=== PATIENT | female | born 1955 | race Caucasian/White ===

== ENCOUNTER 2019-03-19 17:03 | Emergency (ER) | payer MEDICARE, MEDICAID ==
--- NOTE | 2019-03-19 17:16 | UC ---
Skin Complaint HPI - HPI Summary HPI Summary: 63 y/o female presents to the urgent care c/o tick bite w/ tick still presents in her left upper back. Tick has been there for 1 week. Pt was outside in the garden about 1 wek ago. She noticed at night time something bit her. The next day she thought it was a pimple and she didn't pay to much attention. She has Hx of neuropathy and she felt alike a tingling sensation at times. Pt is very anxious and requests full treatment w/ antibiotics. Pt deneis fever, MOYA, joint pain, dizziness, abdominal pain, N/V/D. She has had tick bite in the pst w/o any prophylactic treatment. - History of Current Complaint Time Seen by Provider: 03/19/19 17:14 Stated Complaint: TICK BITE Hx Obtained From: Patient Onset/Duration: Gradual Onset, Lasting Weeks - 1 week, Still Present Skin Exposure Onset/Duration: Weeks Ago - 1 week Timing: Constant Onset Severity: Moderate Current Severity: Severe Pain Intensity: 4 Pain Scale Used: 0-10 Numeric Location: Discrete - left side of upper back w/ a engorged tick for the past week. Character: Swelling, Redness, Painful Aggravating Factor(s): Touch Alleviating Factor(s): Nothing Associated Signs & Symptoms: Positive: Rash - tick bite on the left upper back for the past week. She though it was a pimple. Negative: Fever, Chills Related History: Possible Reaction to: Insect - tick bite - Allergy/Home Medications Allergies/Adverse Reactions: Allergies Allergy/AdvReac Type Severity Reaction Status Date / Time clarithromycin [From Biaxin] Allergy Unknown Verified 03/19/19 17:31 Reaction Details codeine Allergy Unknown Verified 03/19/19 17:31 Reaction Details latex Allergy Unknown Verified 03/19/19 17:31 Reaction Details melatonin Allergy Unknown Verified 03/19/19 17:31 Reaction Details morphine Allergy Unknown Verified 03/19/19 17:31 Reaction Details Penicillins Allergy Unknown Verified 03/19/19 17:31 Reaction Details povidone-iodine Allergy Unknown Verified 03/19/19 17:31 [From Betadine] Reaction Details pregabalin [From Lyrica] Allergy Unknown Verified 03/19/19 17:31 Reaction Details ramelteon [From Rozerem] Allergy Unknown Verified 03/19/19 17:31 Reaction Details soap [From Betadine] Allergy Unknown Verified 03/19/19 17:31 Reaction Details Home Medications: Home Medications Cyclosporine 0.05% OPHTH (NF) [Restasis 0.05% OPHTH] 1 drop BOTH EYES BID [History Confirmed 03/19/19] Gabapentin CAP(*) [Neurontin 100 mg CAP(*)] 100 mg PO BID 03/19/19 [History Confirmed 03/19/19] Lisinopril TAB* [Prinivil TAB 5 MG*] 5 mg PO DAILY 03/19/19 [History Confirmed 03/19/19] PARoxetine HCL TAB* [Paxil TAB*] 40 mg PO DAILY 03/19/19 [History Confirmed 12/06] hydrOXYzine HCL TAB* [Atarax 25 MG TAB*] 25 mg PO BID 03/19/19 [History Confirmed 03/19/19] PMH/Surg Hx/FS Hx/Imm Hx Previously Healthy: Yes Cardiovascular History: Hypertension Other Neurological History: herniated disc and neuropathy - Family History Known Family History: Positive: Hypertension, Diabetes - Social History Occupation: Employed Part-time Review of Systems All Other Systems Reviewed And Are Negative: Yes Constitutional: Positive: Negative Skin: Positive: Other - tick bite w/ tick still presents for 1 week ENT: Positive: Negative Respiratory: Positive: Negative Cardiovascular: Positive: Negative Gastrointestinal: Positive: Negative Genitourinary: Positive: Negative Motor: Positive: Negative Neurovascular: Positive: Negative Musculoskeletal: Positive: Negative Neurological: Positive: Negative Psychological: Positive: Negative Is Patient Immunocompromised?: No Physical Exam - Summary Physical Exam Summary: Vital Signs Reviewed: Yes General: well developed, well nourished female sitting in the examining table w/ o any apparent distress. Eyes: Positive: Conjunctiva Clear - PERRLA, EOMI ENT: Positive: Normal ENT inspection, Hearing grossly normal, Pharynx normal, TMs normal Neck: Positive: Supple, Nontender, No Lymphadenopathy Respiratory: Positive: Chest nontender, Lungs clear, Normal breath sounds Cardiovascular: Positive: RRR, No Murmur, Pulses Normal Abdomen Description: Positive: Nontender, No Organomegaly, Soft. Negative: CVA Tenderness (R), CVA Tenderness (L) Bowel Sounds: Positive: Present Musculoskeletal: Positive: Strength Intact, ROM Intact, No Edema Neurological Exam: Normal Psychological Exam: Normal Skin: Positive: rashes -left side of upper back w/ tick bite with surrounding erythema, tender to palpation. engorged big tick still present, no swelling or drainage observed. Triage Information Reviewed: Yes Course/Dx - Course Course Of Treatment: 63 y/o female presents to the urgent care c/o tick bite w/ tick still presents in her left upper back. Tick has been there for 1 week. Pt was outside in the garden about 1 wek ago. She noticed at night time something bit her. The next day she thought it was a pimple and she didn't pay to much attention. She has Hx of neuropathy and she felt alike a tingling sensation at times. Pt is very anxious and requests full treatment w/ antibiotics. Pt deneis fever, MOYA, joint pain, dizziness, abdominal pain, N/V/D. She has had tick bite in the pst w/o any prophylactic treatment. Hx obtained. Pt w/ left side of upper back w/ tick bite with surrounding erythema, tender to palpation. engorged big tick still present, no swelling or drainage observed on examination. Tick was removed from left upper back using twister technique. Tick big and engorged and still alive. After tick removal and the skin cleansing and Bacitracin oint applied . [facility] a whole week. Pt advised to observe the area for the development or Erythema Migrans for upto 30 days following exposure. Advised f/u w/ her PCP in 2-3 week for Lyme serology. However strongly advised to f/u with Dr Mary if serology returns positive for further management. Rx sent to pharmacy and advised to take full course of ABX despite Serology result. Pt's BP is elevated today advised to decrease salt in diet, monitor BP and f/u with PCP for further management. Pt understood and agreed with plan of care. - Differential Diagnoses - Skin Complaint Differential Diagnoses: Abscess, Cellulitis, Contact Dermatitis, Local Allergic Reaction, MRSA, Tick Born Illness, Urticaria - Diagnoses Provider Diagnosis: Tick bite of back, Uncontrolled hypertension Discharge - Sign-Out/Discharge Documenting (check all that apply): Patient Departure - D/C home All imaging exams completed and their final reports reviewed: No Studies - Discharge Plan Condition: Stable Disposition: HOME Prescriptions: Bacitracin OINTMENT* 1 applic TOPICAL BID #1 tube DOXYcycline CAP(*) [DOXYcycline 100MG CAP(*)] 100 mg PO BID #28 cap Patient Education Materials: Tick Bite (ED) Referrals: Tyra COLEMAN,Randall Guillen [Medical Doctor] - If Needed Stefany Jacobs MD [Primary Care Provider] - 2 Weeks Additional Instructions: 1- Please observe the area for the development or Erythema Migrans for upto 30 days following exposure. Components of the tick saliva can cause transient erythema that should not be confused with Erythema Migrans. If you develop the bull's eye rash, fever, joint pains please return to the urgent care or f/u with 2- Since tick is so engorged and has been there for 1 week you, please take full course of Doxycycline PO to prevent lyme Disease. Lyme serology can be drawn in 3 weeks with your PCP to r/o Lyme disease since there is probability of negative results at early exposure. If it returns positive please f/u w/ Dr Mary who specializes in Lyme disease. 3- Your BP is elevated today. please decrease salt in your diet, monitor BP and if it continues to be elevated please f/u with your PCP for further management. - Billing Disposition and Condition Condition: STABLE Disposition: Home - Attestation Statements Provider Attestation: I was available for consult. This patient was seen by the CHRISTA. Plan of care discussed with me . The patient was not seen by or examined by me -Bon Vazquez MD
[2019-03-19 17:20] VITALS: BP 153/90
== END 2019-03-19 17:46 | disposition home or self-care (01) ==
LOC: UCCORT 17:03
DX: S20.462A Insect bite (nonvenomous) of left back wall of thorax, initial encounter (principal); W57.XXXA Bitten or stung by nonvenomous insect and other nonvenomous arthropods, initial encounter; Y93.H2 Activity, gardening and landscaping; Y92.017 Garden or yard in single-family (private) house as the place of occurrence of the external cause; G62.9 Polyneuropathy, unspecified; Z88.1 Allergy status to other antibiotic agents; Z91.040 Latex allergy status; Z88.5 Allergy status to narcotic agent; Z88.0 Allergy status to penicillin; Z91.048 Other nonmedicinal substance allergy status
CPT/HCPCS: 99212; G0463

== ENCOUNTER 2019-04-19 15:46 | Emergency (ER) | payer MEDICARE, MEDICAID ==
--- OUTSIDE RECORDS SUMMARY | 2019-04-19 16:01 | XMS REPORT | Continuity of Care Document ---
:1955 External Reference #:[id number] Author Name MichCedric madrigalley Care Team Providers Name Role Phone Stefany Jacobs MD Primary Care Physician Unavailable Payers Date Identification Numbers Payment Provider Subscriber Effective: 1995 Policy Number: [id number] Medicare Nadine Gardner PayID: [id number] [address] [place] [address] Effective: 2017 Policy Number: [id number] Medicaid Nadine Gardner Group Name: 1 1 [address] PayID: [id number] [place] [address] Onset: 1992 Policy Number: [id number] [facility] Nadine Gardner Group Number: [id number] [address] [address] PayID: [id number] [address] Advance Directives Type Date Description Status Comment MOLST 05/11/2018 MOLST Current and Verified Other Directive 03/21/2018 Health Care Proxy Current and Verified Problems Active Problems Provider Date Myalgia & Myositis Unspecified Isaac Redman M.D. Onset: 08/24/2011 Disorder of lumbar disc Jazzy Child M.D. Onset: 08/27/2011 Neck sprain Jazzy Child M.D. Onset: 08/27/2011 Basal cell carcinoma of scalp Onset: Note: Dr. Prather Impaired fasting glycaemia Stefany Jacobs M.D. Onset: 01/19/2017 Cervical spondylosis with radiculopathy Onset: Essential hypertension Stefany Jacobs M.D. 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 Onset: 05/26/2018 Subjective tinnitus Stefany Jacobs M.D. Onset: 10/05/2018 Inactive Problems Lumbar sprain Jazzy Child M.D. Onset: 08/27/2011 Inactive: 03/10/2018 Family History Date Family Member(s) Observation Comments General Heart Disease General Hypertension General Stroke Social History Type Date Description Comments Sex Unknown Tobacco Use Start: Unknown End: Former Cigarette Smoker quit 30 yrs ago off Unknown and on X 6 yrs Smoking Status Reviewed: 05/11/18 Former Cigarette Smoker quit 30 yrs ago off and on X 6 yrs ETOH Use Denies alcohol use ETOH Use sig other lives with Tobacco Use Start: Unknown End: Patient is a former smoker Unknown Allergies, Adverse Reactions, Alerts Active Allergies Reaction Severity Comments Date Penicillins 03/10/2011 Sodium Pentothal 03/10/2011 Cocaine 03/10/2011 Lyrica 03/10/2011 Rozerem 03/10/2011 Latex 03/10/2011 bandaids 03/10/2011 Betadine 03/10/2011 Sulfa 03/10/2011 Biaxin 03/10/2011 Morphine 03/02/2013 Valium 03/02/2013 Demerol 03/02/2013 Melatonin 10/03/2015 Medications Active Medications SIG Qnty Indications Ordering Date Provider Prinivil once a day 90tabs Stefany Jacobs, 04/05/2019 10mg M.D. Tablets Atarax Twice Daily Unknown 03/19/2019 25mg Tablets Bacitracin Zinc Twice Daily 1units Unknown 03/19/2019 500Unit/GM Ointment Ibuprofen 200 2 tab every 8 hrs as 90tabs Stefany Jacobs, 11/11/2018 200mg needed for pain M.D. Tablets Shingrix intramuscular x 1 1units Stefany Jacobs, 05/11/2018 50mcg then repeat in 4 M.D. Suspension Rec months Gabapentin 1 cap every 12 hours 60caps M51.16 Stefany Jacobs, 10/07/2017 100mg M.D. Capsules Hydroxyzine HCL take 1 tab by mouth Unknown 2x daily for anxiety 50mg Tablets as needed Paroxetine HCL 1 by mouth every day Unknown 40mg Tablets Vitamin E 1 po qd Unknown 400mg Capsules Fish Oil 1 daily Unknown Vitamin D3 High 3 po qd Unknown Potency 1000 Capsules Vitamin C 1 po qd Unknown 500mg Tablet Restasis one gtts ou bid 1units Unknown 0.05% Emulsion Vitamin B-12 1 po qd 90tabs Unknown 1000mcg Tablets Sub History Medications Doxycycline Hyclate Twice Daily 28caps Unknown 03/19/2019 - 100mg 04/05/2019 Capsules Prinivil once a day 90tabs Stefany 04/19/2018 - 5mg Tablets Hernesto Jacobs 04/05/2019 Ciprofloxacin HCL 1 by mouth twice a 6tabs N39.0 Jimmy 12/01/2016 - 500mg day Hernesto Gutierrez 02/10/2017 Tablets Betamethasone apply to rash 45m Jazzy 01/03/2015 - Dipropionate under breasts 2x Hernesto Child 10/07/2016 0.05% per day Ointment Clotrimazole apply twice a day 65gm Jazzy 01/03/2015 - 1% Cream for 2-3 days as Hernesto Child 10/07/2016 needed Proair HFA 2 puffs by mouth 1units 493.10 Jazzy 01/03/2015 - 108(90Base) every 4 hours as Hernesto Child 10/07/2016 mcg/Act Aerosol needed Nystop apply twice a day 60units 112.9 Jazzy 01/03/2015 - 677293Kfuj/GM Hernesto Child 10/07/2016 Powder Clotrimazole/Betametha apply twice daily 45units 112.9 Jazzy 01/03/2015 - sone Dipropionate as needed Hernesto Child 01/04/2015 1-0.05% unbreasts Cream Triamcinolone apply thin film 45units 691.8 Jazzy 01/03/2015 - Acetonide twice daily Hernesto Child 10/07/2016 0.1% Cream Azithromycin 2 tab po day 1 6tabs 476.0 Jazzy 11/03/2012 - 250mg then 1 tab po day Hernesto Child 03/02/2013 Tablets 2-5 Shingles Vaccine SQ 1 dose 1units [place] 09/12/2012 - [place], 03/02/2013 Hernesto Cefuroxime Axetil 1 po bid for 10 20tabs 461.9 Bro Guillen 08/24/2011 - 500mg days [place], 01/27/2012 Tablets ALAN Eric Omnaris 1 sprays each chio 1mon 461.9 Bro Guillen 08/24/2011 - 50mcg/Act bid [place], 01/27/2012 Suspension Hernesto,FACDuncan Clonazepam 1 and 1/2 tab by 45tabs Stefany 03/10/2011 - 0.5mg Tablets mouth at bedtime Hernesto Jacobs 02/10/2017 Cyclobenzaprine HCL take 1 tablet by 30tabs Stefany 03/10/2011 - 5mg mouth as needed Hernesto Jacobs 05/10/2018 Tablets Ibuprofen take 1 tablet by 270tabs Stefany - 800mg Tablets mouth three times Hernesto Jacobs 10/07/2016 a day if needed Alendronate Sodium take 1 tablet by 4tabs Jazzy - 70mg mouth every week Hernesto Child 02/25/2012 Tablets Premarin 1 application 42.500gm Unknown - 0.625mg/GM Cream daily 01/27/2012 Detrol LA 1 po qd 30caps Unknown - 4mg Caps ER 08/27/2011 24HR Paroxetine HCL 1 po qd 30tabs Jazzy - 40mg Hernesto Child 02/02/2018 Tablets Hydroxyzine HCL 1 po bid 60tabs Jazzy - 50mg Hernesto Child 02/02/2018 Tablets Fiberchoice 2 po qd Unknown - 2gm [place]wtabs 09/07/2013 Metamucil 2 tbsp qid po QS Unknown - 48.57% Powder 09/07/2013 Stool Softener 1 po bid Unknown - 100mg 03/02/2013 Capsules Advil 2 tab every 8 100caps Stefany - 200mg Capsules hours as needed Hernesto Jacobs 11/11/2018 Flexeril 1 tablet three 30tabs Unknown - 5mg Tablets times a day as 03/10/2011 needed Medications Administered in Office Medication SIG Qnty Indications Ordering Provider Date Shingrix no bill inj-pt brought in Unknown 08/24/2018 Injection Immunizations CPT Code Status Date Vaccine Lot # [id number] Given 08/12/2018 Influenza Virus Vaccine, Quadrivalent, Split, Preservative Free 44142 Given 06/14/2018 Zoster (Shingles) Vaccine (HZV), Recombinant, Subunit, Adjuvanted 78075 Given 08/05/2017 Influenza Virus Vaccine, Quadrivalent, Split, Preservative Free [id number] Given 07/30/2016 Influ Virus Vaccine, Quadrivalent, Split Virus, [place] [address] Given 07/30/2015 Pneumococcal Conjugate Vaccine 13 Valent For Intramuscular Use 59110 Given 07/16/2015 Influenza Virus Vaccine, Quadrivalent, Split, Preservative Free [id number] Given 07/27/2014 Fluvirin Im 3Yrs And Older Q2039 Given 07/14/2013 Flu Vaccine NOS Q2037 Given 09/14/2012 Fluvirin Im 3Yrs And Older 30707 Given 07/27/2011 Influenza Virus 3Yrs & Over 20131 Given 06/11/2010 Tdap - Tetanus/Diptheria/Acellular Pertussis Vital Signs Date Vital Result Comment 04/05/2019 10:39am Height 58 inches 4'10" Weight 134.00 lb Heart Rate 67 /min BP Systolic 146 mmHg BP Diastolic 81 mmHg O2 % BldC Oximetry 98 % BMI (Body Mass Index) 28.0 kg/m2 10/05/2018 10:53am Height 58 inches 4'10" Weight 133.00 lb Heart Rate 76 /min BP Systolic Sitting 140 mmHg BP Diastolic Sitting 98 mmHg O2 % BldC Oximetry 95 % BMI (Body Mass Index) 27.8 kg/m2 05/11/2018 1:16pm Height 58 inches 4'10" Weight 130.00 lb Heart Rate 75 /min BP Systolic Sitting 130 mmHg BP Diastolic Sitting 90 mmHg O2 % BldC Oximetry 97 % BMI (Body Mass Index) 27.2 kg/m2 04/19/2018 12:10pm Heart Rate 73 /min BP Systolic Sitting 158 mmHg L arm 153/90 BP Diastolic Sitting 91 mmHg L arm 153/90 04/07/2018 10:32am Height 58.5 inches 4'10.50" Weight 131.50 lb Heart Rate 65 /min BP Systolic Sitting 136 mmHg BP Diastolic Sitting 92 mmHg Pain Level 7 O2 % BldC Oximetry 95 % BMI (Body Mass Index) 27.0 kg/m2 03/10/2018 12:08pm Height 58.5 inches 4'10.50" Weight 134.00 lb Heart Rate 68 /min BP Systolic Sitting 130 mmHg BP Diastolic Sitting 88 mmHg Pain Level 8 O2 % BldC Oximetry 99 % BMI (Body Mass Index) 27.5 kg/m2 02/02/2018 9:39am Weight 135.00 lb Heart Rate 87 /min BP Systolic Sitting 120 mmHg BP Diastolic Sitting 80 mmHg Body Temperature 98.0 F O2 % BldC Oximetry 97 % 10/07/2017 10:27am Weight 138.00 lb Heart Rate 70 /min BP Systolic 135 mmHg BP Diastolic 90 mmHg Body Temperature 97.3 F O2 % BldC Oximetry 98 % 04/07/2017 10:32am Weight 132.50 lb Heart Rate 70 /min BP Systolic 128 mmHg BP Diastolic 80 mmHg Body Temperature 97.2 F O2 % BldC Oximetry 97 % 02/10/2017 10:56am Weight 130.00 lb Heart Rate 68 /min BP Systolic Sitting 124 mmHg BP Diastolic Sitting 72 mmHg Respiratory Rate 15 /min Body Temperature 98.0 F O2 % BldC Oximetry 98 % 12/01/2016 2:18pm Weight 133.00 lb Heart Rate 68 /min BP Systolic 130 mmHg BP Diastolic 86 mmHg Body Temperature 98.2 F O2 % BldC Oximetry 98 % 10/07/2016 10:47am Weight 137.00 lb Heart Rate 76 /min BP Systolic Sitting 148 mmHg BP Diastolic Sitting 86 mmHg Body Temperature 97.4 F 04/03/2016 10:32am Weight 136.00 lb Heart Rate 71 /min BP Systolic Sitting 124 mmHg BP Diastolic Sitting 80 mmHg Body Temperature 97.1 F O2 % BldC Oximetry 98 % 10/03/2015 10:49am Weight 138.00 lb Heart Rate 63 /min BP Systolic Sitting 133 mmHg BP Diastolic Sitting 86 mmHg Body Temperature 97.6 F 04/04/2015 10:23am Height 58.5 inches 4'10.50" Weight 133.00 lb Heart Rate 78 /min BP Systolic Sitting 126 mmHg BP Diastolic Sitting 78 mmHg Body Temperature 98.5 F O2 % BldC Oximetry 98 % BMI (Body Mass Index) 27.3 kg/m2 02/07/2015 10:37am Height 58.5 inches 4'10.50" Weight 138.25 lb Heart Rate 67 /min BP Systolic Sitting 114 mmHg BP Diastolic Sitting 68 mmHg Body Temperature 96.8 F O2 % BldC Oximetry 96 % BMI (Body Mass Index) 28.4 kg/m2 01/03/2015 10:35am Height 58.5 inches 4'10.50" Weight 136.00 lb Heart Rate 75 /min BP Systolic Sitting 118 mmHg BP Diastolic Sitting 84 mmHg Body Temperature 96.8 F O2 % BldC Oximetry 98 % BMI (Body Mass Index) 27.9 kg/m2 09/18/2014 10:06am Weight 138.00 lb Heart Rate 66 /min BP Systolic Sitting 120 mmHg BP Diastolic Sitting 72 mmHg 03/08/2014 10:41am Weight 132.00 lb Heart Rate 64 /min BP Systolic Sitting 118 mmHg BP Diastolic Sitting 70 mmHg 09/07/2013 11:06am Weight 134.00 lb Heart Rate 66 /min BP Systolic Sitting 147 mmHg BP Diastolic Sitting 91 mmHg 03/02/2013 10:40am Weight 130.00 lb Heart Rate 69 /min BP Systolic Sitting 118 mmHg BP Diastolic Sitting 79 mmHg 11/03/2012 1:24pm Height 58.50 inches 4'10.50" Weight 130.00 lb Heart Rate 63 /min BP Systolic Sitting 136 mmHg BP Diastolic Sitting 82 mmHg Body Temperature 98.8 F BMI (Body Mass Index) 26.7 kg/m2 09/01/2012 10:42am Height 58.50 inches 4'10.50" Weight 132.00 lb Heart Rate 78 /min BP Systolic Sitting 120 mmHg BP Diastolic Sitting 80 mmHg BMI (Body Mass Index) 27.1 kg/m2 02/25/2012 10:45am Height 58.50 inches 4'10.50" Weight 125.75 lb Heart Rate 72 /min BP Systolic Sitting 132 mmHg l BP Diastolic Sitting 84 mmHg l BMI (Body Mass Index) 25.8 kg/m2 02/05/2012 9:35am Height 58.50 inches 4'10.50" Weight 130.00 lb Heart Rate 63 /min BP Systolic Sitting 120 mmHg BP Diastolic Sitting 78 mmHg BMI (Body Mass Index) 26.7 kg/m2 01/27/2012 10:44am Height 58.50 inches 4'10.50" Weight 130.00 lb Heart Rate 74 /min BP Systolic Sitting 122 mmHg L BP Diastolic Sitting 80 mmHg L BMI (Body Mass Index) 26.7 kg/m2 08/27/2011 11:03am Weight 128.00 lb Heart Rate 70 /min BP Systolic Sitting 120 mmHg BP Diastolic Sitting 78 mmHg 08/24/2011 9:57am Weight 129.00 lb Heart Rate 72 /min BP Systolic Sitting 118 mmHg BP Diastolic Sitting 82 mmHg Body Temperature 98.0 F lt ear 05/21/2011 12:55pm Heart Rate 68 /min BP Systolic Sitting 120 mmHg BP Diastolic Sitting 80 mmHg 03/10/2011 9:51am Height 58 inches 4'10" Weight 124.00 lb Heart Rate 80 /min BP Systolic Sitting 124 mmHg BP Diastolic Sitting 90 mmHg BMI (Body Mass Index) 25.9 kg/m2 Results Test Date Facility Test Result H/L Range Note Laboratory test 06/03/2018 [facility] Hemosure negative finding Non-Medicare Basic Metabolic 05/03/2018 [facility] Sodium 140 mmol/L N 135- [address] [place] [address] [phone] Potassium 4.1 mmol/L N 3.5-5.0 Chloride 103 mmol/L N 101-111 Co2 Carbon Dioxide 27 mmol/L N 22-32 Anion Gap 10 mmol/L N 2-11 Glucose 110 mg/dL High 70-100 Blood Urea Nitrogen 17 mg/dL N 6-24 Creatinine 0.81 mg/dL N 0.51-0.95 BUN/Creatinine Ratio 21.0 High 8-20 Calcium 9.5 mg/dL N 8.6-10.3 Egfr Non- 71.6 >60 Egfr 86.7 >60 1 Laboratory test 02/10/2017 [facility] TSH (Thyroid 2.09 mcIU/mL N 0.34-5.[address] Stim [place]) [place] [address] [phone] Vitamin B12 626 pg/mL N 180-914 2 Lyme Disease Serology Negative N Negative 3 HIV 1/2 AB 02/10/2017 [facility] HIV 1 2 Nonreactive N Nonreactive [address] [place] [address] [phone] Ua Routine 12/01/2016 [facility] Ua Specific 5 [place] Ua PH 1.000 Ua Color light yellow Ua Appera clear Ua WBC neg Ua Protein neg Ua Glucose norm Ua Ketones neg Ua Bilirubin neg Ua Urobilinogen norm Ua Nitrite neg Ua Occult Blood neg Urine Culture And 12/01/2016 [facility] Urine Culture SEE RESULT [address] [place] [address] [phone] Drug Abuse 20 Urine 10/07/2016 [facility] Urine Negative N [address] Amphetamine ng/[place] [address] [phone] Urine Barbiturates Negative ng/mL N 7 Urine Benzodiazepines Negative ng/mL N 8 Urine Cocaine Negative ng/mL N 9 Urine Phencyclidine Negative ng/mL N Cutoff: 25 Urine Tetrahydrocannabinol Negative ng/mL N Cutoff: 50 10 Creatinine 75.1 mg/dL N Specific [place] 1.011 N pH 7.5 N Oxidants Negative N 11 Adulterants Comment Normal N Codeine, Ur Not Detected ng/mL N Cutoff: 25 12 Jrwndue-3-zguy-glucuronide, Ur Not Detected ng/mL N 13 Morphine, Ur Not Detected ng/mL N Cutoff: 25 14 Waddcpfx-0-eitl-glucuronide, U Not Detected ng/mL N 15 6-monoacetylmorphine, Ur Not Detected ng/mL N Cutoff: 25 16 Hydrocodone, Ur Not Detected ng/mL N Cutoff: 25 17 Norhydrocodone, Ur Not Detected ng/mL N Cutoff: 25 18 Dihydrocodeine, Ur Not Detected ng/mL N Cutoff: 25 19 Hydromorphone, Ur Not Detected ng/mL N Cutoff: 25 20 Zglfdylqqcbds6jgdxzrmciaryind Not Detected ng/mL N 21 Oxycodone, Ur Not Detected ng/mL N Cutoff: 25 22 Noroxycodone, Ur Not Detected ng/mL N Cutoff: 25 23 Oxymorphone, Ur Not Detected ng/mL N Cutoff: 25 24 Eqhazrjvsqu-7-hrcb-glucuronide Not Detected ng/mL N 25 Noroxymorphone, Ur Not Detected ng/mL N Cutoff: 25 26 Fentanyl, Ur Not Detected ng/mL N Cutoff: 2 27 Norfentanyl, Ur Not Detected ng/mL N Cutoff: 2 28 Meperidine, Ur Not Detected ng/mL N Cutoff: 25 29 Normeperidine, Ur Not Detected ng/mL N Cutoff: 25 30 Naloxone, Ur Not Detected ng/mL N Cutoff: 25 31 Zxfvypzd-4-ecrm-glucuronide, U Not Detected ng/mL N 32 Methadone, Ur Not Detected ng/mL N Cutoff: 25 33 Eddp, Ur Not Detected ng/mL N Cutoff: 25 34 Propoxyphene, Ur Not Detected ng/mL N Cutoff: 25 35 Norpropoxyphene, Ur Not Detected ng/mL N Cutoff: 25 36 Tramadol, Ur Not Detected ng/mL N Cutoff: 25 37 O-desmethyltramadol, Ur Not Detected ng/mL N Cutoff: 25 38 Tapentadol, Ur Not Detected ng/mL N Cutoff: 25 39 N-desmethyltapentadol, Ur Not Detected ng/mL N Cutoff: 50 40 Hmjlmofrfs-hfif-ddmkypcavwm, U Not Detected ng/mL N 41 Buprenorphine, Ur Not Detected ng/mL N Cutoff: 5 42 Norbuprenorphine, Ur Not Detected ng/mL N Cutoff: 5 43 Norbuprenorphine glucuronide Not Detected ng/mL N Cutoff: 20 44 Opioid Interpretation See Comment N 45 Benzodiazepine 04/03/2016 [facility] Urine Negative N 46 Confirm Urine [address] Lorazepam ng/[place] [address] GC/MS [phone] Urine Nordiazepam GC/MS Negative ng/mL N 47 Urine Oxazepam GC/MS Negative ng/mL N 48 Urine Temazepam GC/MS Negative ng/mL N 49 Ur Oh Ethyl Flurazepam GC/MS Negative ng/mL N 50 Ur 7 [place] Clonazepam GC/MS 262 ng/mL N 51 Ur 7 [place] Flunitrazepam GC/MS Negative ng/mL N Cutoff: 50 Ur Alpha Oh Alprazolam GC/MS Negative ng/mL N 52 Ur Alpha Oh Triazolam GC/MS Negative ng/mL N 53 Ur Benzodiazepine Interp Positive. N 54 Drug Abuse 20 04/03/2016 [facility] Urine Amphetamine Negative ng/mL N [address] [place] [address] [phone] Urine Barbiturates Negative ng/mL N 56 Urine Benzodiazepines Presumptive Posi <SEE NOTE> ng/mL N 57 Urine Cocaine Negative ng/mL N 58 Urine Methadone Negative ng/mL N 59 Urine Opiates Negative ng/mL N 60 Urine Phencyclidine Negative ng/mL N Cutoff: 25 Urine Tetrahydrocannabinol Negative ng/mL N Cutoff: 50 61 Urine Oxycodone Negative ng/mL N 62 Laboratory test 02/07/2015 [facility] Hemoglobin A1c 6.0 5-7 finding Lipid Profile 01/03/2015 [facility] Triglycerides 125 mg/dL N 63, 64 (Trig/Chol/HDL) [address] [place] [address] [phone] Cholesterol 189 mg/dL N 65 HDL Cholesterol 59.3 mg/dL N 66 LDL Cholesterol 105 mg/dL N 67 Comp Metabolic Panel 01/03/2015 [facility] Sodium 139 mmol/L N 133-[address] [place] [address] [phone] Potassium 4.2 mmol/L N 3.5-5.0 Chloride 104 mmol/L N 101-111 Co2 Carbon Dioxide 31 mmol/L N 22-32 Anion Gap 4 mmol/L N 2-11 Glucose 111 mg/dL High 70-100 Blood Urea Nitrogen 15 mg/dL N 6-24 Creatinine 0.89 mg/dL N 0.51-0.95 BUN/Creatinine Ratio 16.9 N 8-20 Calcium 9.7 mg/dL N 8.6-10.3 Total Protein 7.1 g/dL N 6.4-8.9 Albumin 4.9 g/dL N 3.2-5.2 Globulin 2.2 g/dL N 2-4 Albumin/Globulin Ratio 2.2 N 1-3 Total Bilirubin 0.90 mg/dL N 0.2-1.0 Alkaline Phosphatase 53 U/L N 34-104 Alt 21 U/L N 7-52 Ast 17 U/L N 13-39 Egfr Non- 64.9 N >60 Egfr 83.5 N >60 68 Laboratory test 01/03/2015 [facility] TSH (Thyroid 1.67 N 0.34 -5.60 [address] Stimulating IU/[place] [address] Horm) [phone] Free T4 0.95 ng/mL N 0.61-1.12 70 Laboratory test 11/03/2012 [facility] Rapid Strep A (SEE NOTE) [address] [place] [address] [phone] Throat Beta Strep Culture (SEE NOTE) 72 Laboratory test 11/03/2012 [facility] Rapid Strep A negative finding Surgical Pathology 03/08/2012 [facility] Surgical -- [address] Pathology <SEE NOTE> [place] [address] [phone] Vitamin D, 25 01/28/2012 [facility] 25-Hydroxy <4.0 ng/mL () Hydroxy [address] [facility] Vitamin D2 [place] [address] [phone] 25-Hydroxy Vitamin D3 36 ng/mL () 25-Hydroxy Vitamin D Total 36 ng/mL () 74 Lipid Profile 01/28/2012 [facility] Triglyceride 108 mg/dL 40 -200 (Trig/Chol/HDL) [address] [place] [address] [phone] Cholesterol 196 mg/dL Less Than 200 75 High Density Lipoprotein 61 mg/dL High 40-60 76 Cholesterol/HDL Ratio 3.21 AVERAGE 1-4.44 Low Density Lipoprotein 113 mg/dL High Less Than 100 77 Comp Metabolic Panel 01/28/2012 [facility] Sodium 137 mmol/L 135-145 [address] [place] [address] [phone] Potassium 4.9 mmol/L 3.5-5.0 Chloride 103 mmol/L 101-111 Co2 (Carbon Dioxide) 27.0 mmol/L 22-32 Anion Gap 7.0 mmol/L 2-11 78 Glucose 89 mg/dL 70-100 BUN 14 mg/dL 6-24 Creatinine 0.8 mg/dL 0.50-1.40 One Over Creatinine 1.25 BUN/Creatinine Ratio 17.5 8-20 Calcium 8.9 mg/dL 8.1-9.9 Total Protein 6.6 GM/DL 6.2-8.1 Albumin 4.4 GM/DL 3.6-5.4 Globulin 2.2 GM/DL 2-4 Albumin/Globulin Ratio 2.0 1-3 Bilirubin Total 0.9 mg/dL 0.4-1.5 79 Alkaline Phosphatase 53 U/L 30-110 Alt (SGPT) 26 U/L 14-54 Ast (Sgot) 21 U/L 12-42 eGFR Non- 74.2 > 60 eGFR 95.4 > 60 80 CBC Auto Diff 01/28/2012 [facility] White Blood 3.2 CUMM Low 4.8-10.[address] [place] [address] [phone] Red Cell Count 4.35 CUMM 4.2-5.4 Hemoglobin 13.7 g/dL 12.0-16.0 Hematocrit 39 % 35-47 Mean Corpuscular Volume 90 um3 79-97 Mean Corpuscular Hemoglob 32 pg High 27-31 Mean Corpuscular HGB Cone 35 g/dL 32-36 Redcell Distribution WDTH 13 % 10.5-15 Platelet Count 251 CUMM 150-450 Mean Platelet Volume 9.8 um3 7.4-10.4 Gran % 50.2 % 38-83 Lymph % 39.5 % 25-47 Mononuclear % 7.5 % 1-9 Eosinophil % 2.3 % 0-6 Basophil % 0.5 % 0-2 Abs Lymphs 1.3 1.0-4.8 Abs Mononuclear 0.2 0-0.8 Absolute Neutrophil Count 1.6 1.5-7.7 Abs Eosinophils 0.1 0-0.6 Abs Basophils 0 0-0.2 1 Because ethnic data is not always readily available, this report includes an eGFR for both -Americans and non- Americans. The National Kidney Disease Education Program (NKDEP) does not endorse the use of the MDRD equation for patients that are not between the ages of 18 and 70, are , have extremes of body size, muscle mass, or nutritional status, or are non- or non-. According to the National Kidney Foundation, irrespective of diagnosis, the stage of the disease is based on the level of kidney function: Stage Description GFR(mL/min/1.73 m(2)) 1 Kidney damage with normal or decreased GFR 90 2 Kidney damage with mild decrease in GFR 60-89 3 Moderate decrease in GFR 30-59 4 Severe decrease in GFR 15-29 5 Kidney failure <15 (or dialysis) 2 Normal Range 180 to 914 Indeterminate Range 145 to 180 Deficient Range <145 3 Serologic response to B. burgdorferi infection is not detected, but cannot rule out early infection during which low or undetectable antibody levels to B. burgdorferi may be present. If clinically indicated, a new serum specimen should be submitted in 7-14 days. Test Performed by: [address] [address] 4 It is recognized that currently available assays for the detection of antibodies to HIV-1 and/or HIV-2 may not detect all infected individuals. HIV antibodies may be undetectable in some stages of the infection and in some clinical conditions. The performance of this assay has not been established for populations of infants or children. Assayed by Chemiluminescence Microparticle Immunoassay on the Siemens Advia Centaur CP. Values obtained with different methods or kits cannot be used interchangeably.The diagnostic specificity of the ADVIA Centaur 1/O/2 Enhanced assay in the low risk population was 99.90% (6052/6058) with a 95% confidence interval of 99.78 to 99.96%. 5 SEE RESULT BELOW Name: NADINE LOZADA : [address]: Jimmy Gutierrez MD Acct: [id number] Unit: [id number] AGE: 61 Location: [facility] Re12/01/16 SEX: F Status: REG REF SPEC: [id number] DARNELL: 12/01/16-[address]: Jimmy Gutierrez MD REQ: [id number] RECD: 12/01/16 STATUS: COMP _ SOURCE: URINE SPDESC: ORDERED: Urine Culture COMMENTS: [id number] Urine Source: Random Procedure Result Reported Site Urine Culture Final 12/03/16- 910 ML No Growth (<1,000 CFU/mL) * ML - MAIN LAB ([facility]) . END OF REPORT * ML=Testing performed at Main Lab DEPARTMENT OF PATHOLOGY, [address] [place] [address] Hakeem Zhang M.D. Director [facility] # [id number] 6 REFERENCE VALUE Cutoff: 500 7 REFERENCE VALUE Cutoff: 200 8 REFERENCE VALUE Cutoff: 100 9 REFERENCE VALUE Cutoff: 150 10 ADDITIONAL INFORMATION This report is intended for use in clinical monitoring or management of patients. It is not intended for use in employment-related testing. 11 REFERENCE VALUE Cutoff: 200 mg/L 12 Tylenol 3 13 Metabolite of codeine REFERENCE VALUE Cutoff: 100 14 Elsy Emery MS Contin; Also a minor metabolite (10%) of codeine and can be seen in low concentrations (<2,000 ng/mL) with poppy seed ingestion. 15 Metabolite of morphine REFERENCE VALUE Cutoff: 100 16 Metabolite of heroin 17 Lortab, [place], Vicodin; Also a very minor metabolite of codeine and impurity (<1%) of oxycodone. 18 Metabolite of hydrocodone 19 Metabolite of hydrocodone 20 Dilaudid, Exalgo; Also a metabolite of hydrocodone and a minor (<5%) metabolite of morphine. 21 Metabolite of hydromorphone REFERENCE VALUE Cutoff: 100 22 Endocet, Percocet, Oxycontin 23 Metabolite of oxycodone 24 Numorphan, Opana; Also a metabolite of oxycodone. 25 Metabolite of oxymorphone REFERENCE VALUE Cutoff: 100 26 Metabolite of oxymorphone 27 Actiq, Duragesic, Fentora 28 Metabolite of fentanyl 29 Demerol 30 Metabolite of meperidine 31 Narcan 32 Metabolite of naloxone REFERENCE VALUE Cutoff: 100 33 Dolophine 34 Metabolite of methadone 35 Darvon, Darvocet 36 Metabolite of propoxyphene 37 Tradol, Ultram, Ultracet 38 Metabolite of tramadol 39 Nucynta 40 Metabolite of tapentadol 41 Metabolite of tapentadol REFERENCE VALUE Cutoff: 100 42 Buprenex, Suboxone 43 Metabolite of buprenorphine 44 Metabolite of buprenorphine 45 No opioids were detected. The absence of expected drug(s) and/or drug metabolite(s) may indicate non-compliance, altered pharmacokinetics, inappropriate timing of specimen collection relative to drug administration, diluted/adulterated urine, or limitations of testing. ADDITIONAL INFORMATION This test was developed and its performance characteristics determined by [facility] in a manner consistent with CLIA requirements. This test has not been cleared or approved by the U.S. Food and Drug Administration. Test Performed by: [facility] [employer] - [address] [address] Supervisor Chassis Assembly: Michael Hummel II, M.D., Ph.D. 46 REFERENCE VALUE Cutoff: 100 47 REFERENCE VALUE Cutoff: 100 48 REFERENCE VALUE Cutoff: 100 49 REFERENCE VALUE Cutoff: 100 50 REFERENCE VALUE Cutoff: 100 51 REFERENCE VALUE Cutoff: 100 52 REFERENCE VALUE Cutoff: 100 53 REFERENCE VALUE Cutoff: 100 54 ADDITIONAL INFORMATION This report is intended for use in clinical monitoring and management of patients. It is not intended for use in employment-related testing. Test Performed by: [facility] - [address] [address] Supervisor Chassis Assembly: Michael G. Morice, II, M.D., Ph.D. 55 REFERENCE VALUE Cutoff: 500 56 REFERENCE VALUE Cutoff: 200 57 Presumptive Positive Drug confirmation to follow. Presumptive Positive means that the screening method is positive, but the test needs to be run by a confirmatory method before being finalized. REFERENCE VALUE Cutoff: 100 58 REFERENCE VALUE Cutoff: 150 59 REFERENCE VALUE Cutoff: 300 60 REFERENCE VALUE Cutoff: 300 61 ADDITIONAL INFORMATION This report is intended for use in clinical monitoring or management of patients. It is not intended for use in employment-related testing. 62 REFERENCE VALUE Cutoff: 100 ADDITIONAL INFORMATION This report is intended for use in clinical monitoring or management of patients. It is not intended for use in employment-related testing. Test Performed by: [facility] - [address] [address] Supervisor Chassis Assembly: Michael Hummel II, M.D., Ph.D. 63 PT IS FASTING 64 Desirable <150 Borderline high 150-199 High 200-499 Very High >500 65 Desirable <200 Borderline high 200-239 High >239 66 Low <40 Desirable: 40-60 High: >60 67 Desirable: <100 mg/dL Near Optimal: 100-129 mg/dL Borderline High: 130-159 mg/dL High: 160-189 mg/dL Very High: >189 mg/dL 68 Because ethnic data is not always readily available, this report includes an eGFR for both -Americans and non- Americans. The National Kidney Disease Education Program (NKDEP) does not endorse the use of the MDRD equation for patients that are not between the ages of 18 and 70, are , have extremes of body size, muscle mass, or nutritional status, or are non- or non-. According to the National Kidney Foundation, irrespective of diagnosis, the stage of the disease is based on the level of kidney function: Stage Description GFR(mL/min/1.73 m(2)) 1 Kidney damage with normal or decreased GFR 90 2 Kidney damage with mild decrease in GFR 60-89 3 Moderate decrease in GFR 30-59 4 Severe decrease in GFR 15-29 5 Kidney failure <15 (or dialysis) 69 PT IS FASTING 70 PT IS FASTING 71 RUN DATE: 11/03/12 [facility] LAB LIVE PAGE 1 RUN TIME: [address] [place] [address] Specimen Inquiry Name: NADINE LOZADA : [address]: Jazzy Child MD Acct: [id number] Unit: [id number] AGE: 57 Location: [facility] Re11/03/12 SEX: F Status: REG REF SPEC: [id number] DARNELL: 11/03/12 DR: Jazzy Child MD REQ: [id number] RECD: 11/03/12 STATUS: RES _ SOURCE: THROAT SPDESC: ORDERED: Rapid Strep A, Throat Beta Str QUERIES: Medent Number [id number] Procedure Result Verified Site Rapid Strep A Final 11/03/12- 2028 ML Rapid Strep A Negative for Group A Strep by enzyme immunoassay The gas plant specialist and regulatory agencies both recommend that a throat culture for beta strep be performed if a Rapid Group A Strep assay yields a negative result. Therefore a culture will be automatically performed on all negative samples. Throat Beta Strep Culture PENDING END OF REPORT * ML=Testing performed at Main Lab DEPARTMENT OF PATHOLOGY, [facility][note 3] [employer] [place], [place] [address] Hakeem Zhang M.D. Director [facility] Permit #[id number] RUN DATE: 11/05/12 [facility] LAB LIVE PAGE 1 RUN TIME: 830 [facility][note 3] [employer] [place], [place] [address] Specimen Inquiry Name: NAIDNE LOZADA : [address]: Jazzy Child MD Acct: [id number] Unit: [id number] AGE: 57 Location: [facility] Re11/03/12 SEX: F Status: REG REF SPEC: [id number] DARNELL: 11/03/[address]: Jazzy Child MD REQ: [id number] RECD: 11/03/12 STATUS: COMP _ SOURCE: THROAT SPDESC: ORDERED: Rapid Strep A, Throat Beta Str QUERIES: Medent Number [id number] Procedure Result Verified Site Rapid Strep A Final 11/03/12- 2028 ML Rapid Strep A Negative for Group A Strep by enzyme immunoassay The gas plant specialist and regulatory agencies both recommend that a throat culture for beta strep be performed if a Rapid Group A Strep assay yields a negative result. Therefore a culture will be automatically performed on all negative samples. Throat Beta Strep Culture Final 11/05/12- 830 ML Negative For Group A Beta Streptococcus END OF REPORT * ML=Testing performed at Main Lab DEPARTMENT OF PATHOLOGY, [address] [place] [address] Hakeem Zhang M.D. [facility] Permit #[id number] ---- RUN DATE: 03/09/12 [facility] NMI LIVE PAGE 1 RUN TIME: 1618 Specimen Inquiry RUN USER: INTERFACE -- Name: NADINE LOZADA Status: REG REF Re03/08/12 Age/Sex: 56/F Unit#: [id number] Location: [address] [place], [place] [address]B. : 55 -- Specimen: [id number] [id number] Spec Date:03/08/12- [facility] Dr: Jose santos MD Spec Type: SURGICAL P Received:03/08/12-0345 Copies to: Jazzy gutierres MD SPECIMEN BIOPSY COLON POLYPS AT 10 CM. HISTORY POST-OP DIAGNOSIS: To terminal ileum - rectal polyps biopsied CLINICAL INFORMATION: Routine screening GROSS DESCRIPTION The specimen is received in formalin labelled Nadine Lozada, Biopsy Colon Polyp at 10 cm., and consists of multiple smart soft tissue fragments measuring 1.0 x 0.2 x 0.1 cm. Submitted entirely, one cassette. DIAGNOSIS Colon, 10 cm., biopsy: Hyperplastic polyp. Signed Electronically by: HAKEEM ZHANG MD 03/09/12 1613 -- -- DEPARTMENT OF PATHOLOGY, [address] [place] [address] [facility] Permit #[id number] Hakeem Zhang M.D. Director Brenna Gan M.D. Account Information Clerk Dir amena -- 74 -- REFERENCE VALUE -- 25-HYDROXY D TOTAL (D2+D3) Optimum levels in the normal population are 25-80 Test Performed by: [facility] Dpt of Lab Med and Pathology [address] [place] [address] Supervisor Chassis Assembly: Ko Babin III, M.D. 75 CHOLESTEROL INTERPRETATION: Desirable: Less than 200 MG/DL Borderline-High Risk: 200-239 MG/DL High-Risk: 240 MG/DL and over 76 HDL INTERPRETATION: Undesirable: High Risk: Less than 40 MG/DL Desirable: Low Risk: Greater than 60 MG/DL 77 LDL INTERPRETATION: Low Risk Optimal Level: LDL Less than 100 MG/DL Near or Above Optimal: LDL 100-129 MG/DL Borderline High Risk: LDL 130-159 MG/DL High Risk: LDL 160-189 MG/DL Very High Risk: LDL Greater than 189 MG/DL 78 Anion gap measurement may be of limited value in the presence of any alkalosis, especially in a combined acid base disorder. . 79 A metabolite of Naproxen, O-desmethylnaproxen, has been shown to interfere with the [place] method for measuring total bilirubin. Samples from patients who have taken Naproxen have shown spurious elevation in total bilirubin levels. 80 Because ethnic data is not always readily available, this report includes an eGFR for both -Americans and non- Americans. The National Kidney Disease Education Program (NKDEP) does not endorse the use of the MDRD equation for patients that are not between the ages of 18 and 70, are , have extremes of body size, muscle mass, or nutritional status, or are non- or non-. According to the National Kidney Foundation, irrespective of diagnosis, the stage of the disease is based on the level of kidney function: Stage Description GFR(mL/min/1.73 m(2)) 1 Kidney damage with normal or decreased GFR 90 2 Kidney damage with mild decrease in GFR 60-89 3 Moderate decrease in GFR 30-59 4 Severe decrease in GFR 15-29 5 Kidney failure <15 (or dialysis) Procedures Date Code Description Status 06/02/2018 [id number] Mammogram Completed 05/11/2018 45837 EKG Tracing & Interpretation Completed 01/28/2017 [id number] Bone Mineral Density Test Completed 06/12/2016 [id number] Mammogram Completed 11/14/2014 [id number] Mammogram Completed 11/10/2013 [id number] Mammogram Completed 09/17/2012 [id number] Colonoscopy Completed 03/08/2012 [id number] Colonoscopy Completed 01/28/2012 [id number] Bone Mineral Density Test Completed 09/16/2009 [id number] Mammogram Completed Encounters Type Date Location Provider Dx Diagnosis Office Visit 10/05/2018 Peter Jacobs, M51.16 Intervertebral disc 10:50a Internal M.D. disorders w [facility] radiculopathy, lumbar od region M50.120 Mid-cervical disc disorder, unspecified Office 04/07/2018 Peter Ghosh Internal Stefany M51.16 Intervertebral Visit 10:30a [facility] Jacobs, disc disorders w M.D. radiculopathy, lumbar region R03.0 Elevated blood-pressure reading, w/o diagnosis of htn [facility] M[facility].37 Other Visit 11:50a Eder Jacobs intervertebral M.D. disc degeneration, lumbosacral region F41.9 Anxiety disorder, unspecified R73.01 Impaired fasting glucose Office 02/02/2018 [facility] Internal Alan Gates R42 Dizziness and Visit 10:00a shay Henry M.D. [facility] M51.16 Intervertebral Visit 10:30a Eder Jacobs disc disorders w M.D. radiculopathy, lumbar region R03.0 Elevated blood-pressure reading, w/o diagnosis of htn Office 04/07/2017 [facility] Internal Stefany M51.16 Intervertebral Visit 10:50a Eder Jacobs disc disorders w M.D. radiculopathy, lumbar region Office 02/10/2017 [facility] Internal Stefany R73.01 Impaired fasting Visit 11:10a Eder Jacobs glucose Margaux.Mindy N39.41 Urge incontinence M85.89 Oth disrd of bone density and structure, multiple sites R53.83 Other fatigue Office Visit 12/01/2016 [facility] Internal Jimmy N39.0 Urinary tract 2:20p Eder Gutierrez M.D. infection, site not specified N39.0 Urinary tract infection, site not specified Office 10/07/2016 [facility] Internal Stefany M51.16 Intervertebral Visit 10:50a Eder Jacobs, disc disorders w M.D. radiculopathy, lumbar region Z79.899 Other assisted (current) drug therapy Office Visit 04/03/2016 10:40a [facility] Internal Jazzy M51.16 Intervertebral disc Cresencio Child M.D. disorders w Ccmob radiculopathy, lumbar region M25.552 Pain in left hip M25.551 Pain in right hip Office Visit 10/03/2015 10:40a [facility] Internal Jazzy M51.16 Intervertebral disc Cresencio Child M.D. disorders w Ccmob radiculopathy, lumbar region M46.42 Discitis, unspecified, cervical region F43.21 Adjustment disorder with depressed mood Office Visit 04/04/2015 10:20a [facility] Internal Jazzy Child 722.93 Disc Disorder Medicine - Adriana Eric Other & Unspec Lumbar Region 722.91 Disc Disorder Other & Unspec Cervical Region 729.1 Myalgia & Myositis Unspec 309.0 Adjustment Disorder With Depression Office Visit 02/07/2015 10:40a [facility] Internal Jazzy Child, 691.8 Dermatitis Atopic Medicine - Adriana M.DDeyvi & Related Conditions Other 783.1 Weight Gain Abnormal 790.6 Abnormal Blood Chemistry Other 790.21 Impaired Fasting Glucose Office Visit 01/03/2015 10:40a [facility] Internal Jazzy Child, 300.00 Anxiety State Medicine - Adriana M.Mindy Unspec 691.8 Dermatitis Atopic & Related Conditions Other 112.9 Candidiasis Unspec Site 783.1 Weight Gain Abnormal 733.99 Bone & Cartilage Disorder Other 272.2 Hyperlipidemia Mixed 493.10 Asthma Intrinsic Unspecified Office Visit 09/18/2014 10:30a [facility] Internal Stefany Jacobs 722.93 Disc Disorder Medicine - Adriana MLisandro Other & Unspec Lumbar Region 722.91 Disc Disorder Other & Unspec Cervical Region Office Visit 03/08/2014 11:00a [facility] Internal Jazzy Child 722.93 Disc Disorder Medicine - Adriana Eric Other & Unspec Lumbar Region 722.91 Disc Disorder Other & Unspec Cervical Region 309.0 Adjustment Disorder With Depression Office Visit 09/07/2013 11:00a [facility] Internal Jazzy Child 722.93 Disc Disorder Medicine - Adriana Eric Other & Unspec Lumbar Region 309.0 Adjustment Disorder With Depression 722.91 Disc Disorder Other & Unspec Cervical Region 300.00 Anxiety State Unspec Office Visit 03/02/2013 11:00a [facility] Internal Jazzy Child, 729.1 Myalgia & Medicine - dAriana Eric Myositis Unspec Office Visit 11/03/2012 1:40p [facility] Internal Jazzy Child, 476.0 Laryngitis Medicine Kevin Wright M.D. Chronic Office Visit 09/01/2012 11:00a [facility] Internal Jazzy Child, 847.0 Sprains & Strains Medicine - Adriana Eric Neck 847.2 Sprains & Strains Lumbar 722.91 Disc Disorder Other & Unspec Cervical Region 722.93 Disc Disorder Other & Unspec Lumbar Region 309.0 Adjustment Disorder With Depression Office Visit 02/25/2012 11:00a [facility] Internal Jazzy Child, 847.0 Sprains & Medicine - Adriana Eric Strains Neck 847.2 Sprains & Strains Lumbar 722.91 Disc Disorder Other & Unspec Cervical Region Office Visit 02/05/2012 10:00a [facility] Internal Jazzy Child, V70.0 Examination Medicine - Adriana Eric General Medical Routine AT Health Care Facility 733.90 Bone & Cartilage Disorder Unspec 300.00 Anxiety State Unspec Office Visit 01/27/2012 10:30a [facility] Internal Stefany Jacobs, 300.00 Anxiety State [facility] - [facility] Unspec 729.1 Myalgia & Myositis Unspec Office Visit 08/27/2011 11:00a DO Not Use Davina Child, 722.93 Disc Disorder [place] Other & Unspec Lumbar Region 847.0 Sprains & Strains Neck 847.2 Sprains & Strains Lumbar Office Visit 08/24/2011 9:50a DO Not Use [employer] Bro Guillen 461.9 Sinusitis Acute AT Dipesh Glaser M.D.,FACP Unspec Office Visit 05/21/2011 12:40p DO Not Use [employer] Jazzy Child, 916.4 Injury Superficial AT [facility] [place] Insect Bite Hip Thigh Leg Ankle NV No Inf 477.8 Rhinitis Allergic Due To Other Allergen Office Visit 03/10/2011 10:00a DO Not Use Davina Child, 722.93 Disc Disorder AT [place] Other & Unspec Lumbar Region 722.91 Disc Disorder Other & Unspec Cervical Region 309.0 Adjustment Disorder With Depression Office Visit 05/11/2007 3:30p Neurosurgery Isaac Barney 729.1 Myalgia & Services Of Oil Dispatcher AT [place] Redman Myositis Unspec Darian 847.0 Sprains & Strains Neck 847.2 Sprains & Strains Lumbar Plan of Treatment Future Appointment(s):09/20/2019 10:30 am - Stefany Jacobs M.D. at [facility] Internal Medicine-Zplgsmrgp45/09/2019 11:10 am - Stefany Jacobs M.D. at [facility] Internal Medicine - [facility]04/04/2020 11:00 am - Chelsea Kaufman MD at [facility] Dermatology AT Pdgdhlwa98/19/2019 - Stefany Jacobs M.D.M51.37 Other intervertebral disc degeneration, lumbosacral regionComments:continue managed care specialist , gabapentin dailyFollow up:physical in april
[2019-04-19 16:05] VITALS: BP 132/89
--- NOTE | 2019-04-19 16:22 | ED ---
GI/ HPI - HPI Summary HPI Summary: 63 yr old with Nausea and 6 episodes of diarrhea today. she had cramps in the abdomen prior to diarrhea. Both has seemed to resolve at this point. She has also had sore throat, runny n ose and cough and fatigue since Wednesday this week. She has had chills. - History of Current Complaint Chief Complaint: UCGeneralIllness Time Seen by Provider: 04/19/19 16:10 Stated Complaint: SORE THROAT/SWOLLEN/HX TICK BITE Pain Intensity: 0 - Allergy/Home Medications Allergies/Adverse Reactions: Allergies Allergy/AdvReac Type Severity Reaction Status Date / Time clarithromycin [From Biaxin] Allergy Unknown Verified 04/19/19 16:05 Reaction Details codeine Allergy Unknown Verified 04/19/19 16:05 Reaction Details latex Allergy Unknown Verified 04/19/19 16:05 Reaction Details melatonin Allergy Unknown Verified 04/19/19 16:05 Reaction Details morphine Allergy Unknown Verified 04/19/19 16:05 Reaction Details Penicillins Allergy Unknown Verified 04/19/19 16:05 Reaction Details povidone-iodine Allergy Unknown Verified 04/19/19 16:05 [From Betadine] Reaction Details pregabalin [From Lyrica] Allergy Unknown Verified 04/19/19 16:05 Reaction Details ramelteon [From Rozerem] Allergy Unknown Verified 04/19/19 16:05 Reaction Details soap [From Betadine] Allergy Unknown Verified 04/19/19 16:05 Reaction Details Home Medications: Home Medications Dextromethorphn/Acetaminoph/Cp [Coricidin Hbp Flu] 1 tab PO ONCE 04/19/19 [ History Confirmed 04/19/19] PMH/Surg Hx/FS Hx/Imm Hx Cardiovascular History: Reports: Hx Hypertension - Surgical History Surgery Procedure, Year, and Place: Tonsillectomy age 6, and 36. Miscarriage 1994, with D & C. Several bladder surgeries. Hysterectomy with mesh Infectious Disease History: Yes Infectious Disease History: Reports: Hx Shingles Denies: Traveled Outside the [place] in Last 30 Days - Family History Known Family History: Positive: Hypertension, Diabetes - Social History Alcohol Use: None Substance Use Type: Reports: None Smoking Status (MU): Never Smoked Tobacco Review of Systems Constitutional: Negative Positive: Nasal Discharge Positive: Cough Positive: Diarrhea, Nausea All Other Systems Reviewed And Are Negative: Yes Physical Exam Triage Information Reviewed: Yes Vital Signs On Initial Exam: Initial Vitals Temp Pulse Resp BP Pulse Ox 99.4 F 96 16 132/89 99 04/19/19 16:02 04/19/19 16:02 04/19/19 16:02 04/19/19 16:02 04/19/19 16:02 Vital Signs Reviewed: Yes Appearance: Positive: Well-Appearing, No Pain Distress Skin: Positive: Warm, Skin Color Reflects Adequate Perfusion Head/Face: Positive: Normal Head/Face Inspection Eyes: Positive: EOMI ENT: Positive: Pharyngeal erythema, Nasal congestion, TMs normal Neck: Positive: Supple, Nontender Respiratory/Lung Sounds: Positive: Clear to Auscultation, Breath Sounds Present Cardiovascular: Positive: RRR. Negative: Murmur Abdomen Description: Positive: Nontender. Negative: Distended Musculoskeletal: Positive: Strength/ROM Intact Neurological: Positive: Sensory/Motor Intact, Alert, Oriented to Person Place, Time, CN Intact II-III, Normal Gait, Speech Normal Psychiatric: Positive: Normal Diagnostics - Vital Signs Vital Signs Temp Pulse Resp BP Pulse Ox 04/19/19 16:02 99.4 F 96 16 132/89 99 - Laboratory Lab Statement: Any lab studies that have been ordered have been reviewed, and results considered in the medical decision making process. GIGU Course/Dx - Course Course Of Treatment: 63 yr old with likely viral syndrome for URI and GI symptoms this week. DC home. She knows to go to the ER for any return of abdominal pain or diarrhea. - Diagnoses Provider Diagnoses: Gastroenteritis, Upper respiratory infection Discharge - Sign-Out/Discharge Documenting (check all that apply): Patient Departure All imaging exams completed and their final reports reviewed: No Studies - Discharge Plan Condition: Good Disposition: HOME Patient Education Materials: Gastroenteritis (ED), Upper Respiratory Infection (ED), Hypertension (ED) Referrals: Stefany Jacobs MD [Primary Care Provider] - 1 Day - Billing Disposition and Condition Condition: GOOD Disposition: Home
== END 2019-04-19 16:34 | disposition home or self-care (01) ==
LOC: UCCORT 15:46
DX: K52.9 Noninfective gastroenteritis and colitis, unspecified (principal); J06.9 Acute upper respiratory infection, unspecified; I10 Essential (primary) hypertension; Z88.0 Allergy status to penicillin; Z88.5 Allergy status to narcotic agent
CPT/HCPCS: 99211; G0463

== ENCOUNTER 2019-11-16 06:24 | Day surgery (SDC) | payer MEDICARE, MEDICAID ==
[2019-11-16] MEDS ORDERED: Sodium Bicarbonate 8.4% IV* 50 ML VIAL ONE (06:58)
[2019-11-16] MEDS ORDERED: Lidocaine 1% w EPI 1:200,000* SDV 30 ML VIAL ONE (06:58)
[2019-11-16] MEDS ORDERED: Bupivacaine 0.25% SDV* 30 ML ONE (07:20)
[2019-11-16 08:11] VITALS: BP 144/89
--- NOTE | 2019-11-16 14:55 | OP ---
OPERATIVE REPORT: DATE OF OPERATION: 11/16/19 DATE OF : 55 SURGEON: Jimmy Garica MD. BINGO CALLER: MORGAN Thibodeaux. ANESTHESIOLOGIST: None. ANESTHESIA: Local only with 0.25% plain Marcaine, digital block. PRE-OP DIAGNOSIS: Right middle finger mucus cyst. POST-OP DIAGNOSIS: Right middle finger mucus cyst. OPERATIVE PROCEDURE: Excision of right middle finger mucus cyst. INDICATIONS: Nadine has a cyst, large, it was drained once. It has refilled. We talked about treatment options. She wished to have it excised. ESTIMATED BLOOD LOSS: 2 mL. COMPLICATIONS: None. FINDINGS: See above and below. DESCRIPTION OF PROCEDURE: Nadine was seen in the preoperative holding area. A digital block was performed. We came back to the operating room. The arm was prepped and draped in the usual fashion. A time-out was performed. I made a T-shaped incision over the dorsal ulnar aspect of the distal interphalangeal joint. The cyst was from the overlying skin with a [place] blade. Marginal excision was performed. It was fully excised, preserving the germinal matrix deep to it as well as the terminal extensor tendon. The interval between the extensor tendon and collateral ligament at the ulnar side of the joint was cauterized with the surrounding soft tissue. Everything was looking good. The wound was irrigated out. Skin was closed with 4-0 nylon suture. Soft dressing was applied, and she was taken to the recovery room in stable condition. [id number] #: [id number] MTDD
== END 2019-11-16 08:22 | disposition home or self-care (01) ==
LOC: OREAST 06:24
PROVIDERS: ATTEND Orthopaedic Surgery Hand Surgery
DX: L72.0 Epidermal cyst (principal); I10 Essential (primary) hypertension; F41.8 Other specified anxiety disorders; M79.7 Fibromyalgia; R73.01 Impaired fasting glucose; Z85.828 Personal history of other malignant neoplasm of skin; Z87.891 Personal history of nicotine dependence
CPT/HCPCS: 88304; J2001; J3490